=== PATIENT | female | born 1995 | race African-American/Black ===

== ENCOUNTER 2017-12-25 12:15 | Emergency (ER) | payer OTHER ==
[2017-12-25 12:33] VITALS: BP 106/80; PULSE 65; TEMP 98.5; BMI 18.3
[2017-12-25] MEDS ORDERED: ACETAMINOPHEN 325 MG TABLET (FP) PO ONE (13:04)
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
[2017-12-25] MEDS ORDERED: ACETAMINOPHEN 325 MG TABLET (FP) ONE (13:10)
== END 2017-12-25 13:28 | disposition home or self-care (01) ==
LOC: FER 12:15
DX: S09.90XA Unspecified injury of head, initial encounter (principal); V43.52XA Car driver injured in collision with other type car in traffic accident, initial encounter; Y93.89 Activity, other specified; Y92.410 Unspecified street and highway as the place of occurrence of the external cause
CPT/HCPCS: 99281-25